=== PATIENT | male | born 1980 | race Two or more races ===

== ENCOUNTER 2022-10-14 12:04 | Emergency (ER) | payer OTHER ==
[~2022-10-14] VITALS: Ht 175.3 cm; Wt 81.6 kg
[2022-10-14] MEDS ORDERED: AMOX-CLAV 500-1 EACH PO (13:12)
== END 2022-10-14 17:18 | disposition home or self-care (01) ==
LOC: ER 12:04
DX: K05.10 Chronic gingivitis, plaque induced (principal); Z91.013 Allergy to seafood